=== PATIENT | male | born 1960 | race Caucasian/White ===

== ENCOUNTER 2017-12-01 12:22 | Emergency (ER) | payer MEDICARE, OTHER ==
[~2017-12-01 12:22] MED LIST: CICL8KIT2 EX; CYCL1PAK PO; METO100T9 PO; METO25 PO; OMEP20TA PO; OMEP20TA39 PO; VENL-39 PO; VENL75 PO
[2017-12-01 12:28] VITALS: BP 171/92; PULSE 120; RESP 18; TEMP 98.4; O2SAT 94
[2017-12-01] MEDS ORDERED: OMEP20TA93 PO (12:41)
[2017-12-01] MEDS ORDERED: DIAZ10 PO (12:41)
[2017-12-01] MEDS ORDERED: WATER PILL (12:41)
[2017-12-01] MEDS ORDERED: INHALER (12:41)
[2017-12-01] MEDS ORDERED: METO25TA3 PO (12:41)
[2017-12-01] MEDS ORDERED: VENL75XR PO (12:41)
[2017-12-01] MEDS ORDERED: CYCL10TA PO (12:41)
[2017-12-01] MEDS ORDERED: MICO2CRE34 TOPICAL (12:59)
--- NOTE | 2017-12-01 13:06 | PD ---
HPI Chief Complaint: Skin Problem Time Seen by Provider: 12:38 Travel History International Travel<30 days: No Contact w/Intl Traveler<30days: No Traveled to known affect area: No History of Present Illness HPI 57-year-old male with PMH of GERD, HTN presents the ED for evaluation of 3-day history of pruritic rash in the intertriginous area under the right breast and the inner aspect of the right upper arm. Patient states that the rash began gradually. He denies fever, chills, nausea, vomiting, prodrome of burning sensation, cold or flu symptoms, history of MRSA, injury to the area. He denies any new grooming products, perfumes, deodorants, laundry detergents. Denies sick contacts. He is been treating at home with Benadryl with no improvement of symptoms. PFSH Past Medical History Asthma: Yes Anxiety: Yes Depression: Yes Heart Rhythm Problems: Yes (hx of increase heart rate) Cardiovascular Problems: Yes GERD: Yes Hypertension: Yes Respiratory: Yes Tetanus Vaccination: Unknown Influenza Vaccination: Yes Social History Alcohol Use: Yes (sociallly mix drinks, beer) Tobacco Use: No Substance Use: No Allergies-Medications (Allergen,Severity, Reaction): Coded Allergies: No Known Allergies (Unverified Allergy, Unknown, 12/01/17) Reported Meds & Prescriptions Reported Meds & Active Scripts Active Keflex (Cephalexin) 500 Mg Cap 500 Mg PO Q6H 7 Days Bactrim DS (Sulfamethoxazole-Trimethoprim) 800-160 Mg Tab 1 Tab PO BID Bactroban Topical (Mupirocin) 22 Gm Cream 1 Applic TOPICAL BID 10 Days Reported Valium (Diazepam) 10 Mg Tab 10 Mg PO DIRECTED [Inhaler] [Water Pill] Metoprolol Tartrate 25 Mg Tab Unknown Dose PO DIRECTED Flexeril (Cyclobenzaprine HCl) 10 Mg Tab 10 Mg PO BID Omeprazole 20 Mg Tab 20 Mg PO DAILY Effexor XR 24 HR (Venlafaxine HCl) 75 Mg Cap 75 Mg PO DAILY Review of Systems Except as stated in HPI: all other systems reviewed are Neg Physical Exam Narrative GENERAL: Well-nourished, well-developed obese white male no acute distress. SKIN: Focused skin assessment warm/dry. There is a scattered, maculopapular, pustular, erythematous, nonblanching rash in the intertriginous area under the right breast and the inner aspect of the right arm. HEAD: Normocephalic. EYES: No scleral icterus. No injection or drainage. NECK: Supple, trachea midline. No JVD or lymphadenopathy. CARDIOVASCULAR: Regular rate and rhythm without murmurs, gallops, or rubs. RESPIRATORY: Breath sounds clear and equal bilaterally. No accessory muscle use. GASTROINTESTINAL: Abdomen soft, non-tender, nondistended. MUSCULOSKELETAL: No cyanosis, or edema. BACK: Nontender without obvious deformity. No CVA tenderness. Data Data Last Documented VS Vital Signs Date Time Temp Pulse Resp B/P (MAP) Pulse Ox O2 Delivery O2 Flow Rate FiO2 12/01/17 15:23 93 18 137/76 (96) 96 12/01/17 12:28 98.4 Orders Orders Electrocardiogram (12/01/17 ) Complete Blood Count With Diff (12/01/17 14:06) Basic Metabolic Panel (Bmp) (12/01/17 14:06) Blood Culture (12/01/17 14:06) ^ Insert Iv (12/01/17 14:06) Metoprolol Succinate Er (Toprol Xl) (12/01/17 14:15) Ed Discharge Order (12/01/17 15:10) Labs Laboratory Tests Test 12/01/17 14:30 White Blood Count 5.4 TH/MM3 Red Blood Count 4.62 MIL/MM3 Hemoglobin 15.1 GM/DL Hematocrit 44.7 % Mean Corpuscular Volume 96.8 FL Mean Corpuscular Hemoglobin 32.7 PG Mean Corpuscular Hemoglobin Concent 33.8 % Red Cell Distribution Width 12.6 % Platelet Count 151 TH/MM3 Mean Platelet Volume 8.3 FL Neutrophils (%) (Auto) 48.3 % Lymphocytes (%) (Auto) 42.5 % Monocytes (%) (Auto) 7.5 % Eosinophils (%) (Auto) 0.9 % Basophils (%) (Auto) 0.8 % Neutrophils # (Auto) 2.7 TH/MM3 Lymphocytes # (Auto) 2.3 TH/MM3 Monocytes # (Auto) 0.4 TH/MM3 Eosinophils # (Auto) 0.0 TH/MM3 Basophils # (Auto) 0.0 TH/MM3 CBC Comment DIFF FINAL Differential Comment Blood Urea Nitrogen 18 MG/DL Creatinine 1.60 MG/DL Random Glucose 78 MG/DL Calcium Level 8.9 MG/DL Sodium Level 143 MEQ/L Potassium Level 4.3 MEQ/L Chloride Level 107 MEQ/L Carbon Dioxide Level 29.4 MEQ/L Anion Gap 7 MEQ/L Estimat Glomerular Filtration Rate 45 ML/MIN MDM Medical Decision Making Medical Screen Exam Complete: Yes Emergency Medical Condition: Yes Differential Diagnosis Intertrigo versus cellulitis versus contact dermatitis versus shingles versus other Narrative Course 57-year-old male with PMH of GERD, HTN presents the ED for evaluation of 3-day history of pruritic rash in the intertriginous area under the right breast and the inner aspect of the right upper arm. He denies fever, chills, nausea, vomiting, prodrome of burning sensation, cold or flu symptoms, history of MRSA, injury to the area. He denies any new grooming products, perfumes, deodorants, laundry detergents. Denies sick contacts. Patient is tachycardic, nontoxic appearing on arrival. On exam there is a blanching, macular papular, pustular, erythematous, scattered rash in the intertriginous area under the right breast on the right arm. Exam otherwise unremarkable. EKG rate 101, sinus tachycardia. IL interval 156, QRS 92, QTC 393 ms. Normal axis. No acute ST changes. Reviewed by Dr. Pitt. Patient takes metoprolol, has not taken today's dose. This administered in the ED. CBC: No leukocytosis or anemia. CMP: Unremarkable. Heart rate 93 on recheck. I discussed case with Dr. Pitt. Patient's prescribed Bactrim, Keflex and Bactroban ointment. He is instructed to keep the area clean, dry and covered, take antibiotics as prescribed, return for worsening symptoms. He can otherwise follow-up with his primary care provider. Patient indicated understanding of instructions and is agreeable to care plan. The patient is stable and discharged home. Diagnosis Primary Impression: Rash and nonspecific skin eruption Referrals: Primary Care Physician Additional Instructions: Keep the area of rash clean, dry and covered. Begin antibiotics today and take them as prescribed until every pill is gone. Apply antibiotic ointment twice a day. Wash hands before and after applying ointment. Benadryl as described on the label as needed for continued itching. Avoid hot showers as this can worsen itching. Follow up with the butcher or primary care provider. Return to the ED for worsening symptoms or any urgent or emergent medical condition. Med/Other Pt SpecificInfo: Prescription(s) given Scripts Cephalexin (Keflex) 500 Mg Cap 500 MG PO Q6H for Infection for 7 Days, #28 CAP 0 Refills Prov: Elen Pitt MD 12/01/17 Sulfamethoxazole-Trimethoprim (Bactrim DS) 800-160 Mg Tab 1 TAB PO BID for Infection, #14 TAB 0 Refills Prov: Elen Pitt MD 12/01/17 Mupirocin Topical (Bactroban Topical) 22 Gm Cream 1 APPLIC TOPICAL BID for Mgmt Bacterial Infection for 10 Days, #1 TUBE 0 Refills Prov: Elen Pitt MD 12/01/17 Disposition: 01 DISCHARGE HOME Condition: Stable Iris Cox Dec 01, 2017 13:06
[2017-12-01] MEDS ORDERED: MUPI2%T TOPICAL (13:10)
[2017-12-01 13:16] VITALS: PULSE 110; O2SAT 94
[2017-12-01] MEDS ORDERED: METOPROLOL SUCCINATE 25 MG EXTENDED RELEASE TAB PO ONE (14:15)
[2017-12-01 14:51] LABS: AUTOMATED NEUTROPHIL # 2.7 TH/MM3 (1.8-7.7); BASOPHIL % 0.8 % (0.0-2.0); EOSINOPHIL % 0.9 % (0.0-4.0); HEMATOCRIT 44.7 % (39.0-51.0); HEMOGLOBIN 15.1 GM/DL (13.0-17.0); LYMPH % 42.5 % (9.0-44.0); LYMPHOCYTE # 2.3 TH/MM3 (1.0-4.8); MEAN CELL VOLUME 96.8 FL (80.0-100.0); MEAN CORPUSCULAR HEMOGLOBIN 32.7 PG (27.0-34.0); MEAN CORPUSCULAR HGB CONC 33.8 % (32.0-36.0); MEAN PLATELET VOLUME 8.3 FL (7.0-11.0); MONO % 7.5 % (0.0-8.0); MONOCYTE # 0.4 TH/MM3 (0-0.9); NEUT % 48.3 % (16.0-70.0); PLATELET COUNT 151 TH/MM3 (150-450); RED BLOOD COUNT 4.62 MIL/MM3 (4.50-5.90); RED CELL DISTRIBUTION WIDTH 12.6 % (11.6-17.2); WHITE BLOOD COUNT 5.4 TH/MM3 (4.0-11.0)
[2017-12-01 15:02] LABS: CALCIUM 8.9 MG/DL (8.5-10.1)
[2017-12-01 15:03] LABS: BICARBONATE 29.4 MEQ/L (21.0-32.0)
[2017-12-01 15:06] LABS: CREATININE 1.6 MG/DL (0.60-1.30)
[2017-12-01] MEDS ORDERED: BACT800T5 PO (15:07)
[2017-12-01] MEDS ORDERED: CEPH-460 PO (15:07)
[2017-12-01 15:23] VITALS: BP 137/76
--- NOTE | 2017-12-02 23:29 | EKG ---
Date Performed: 12/01/2017 Time Performed: 14:23:22 PTAGE: 57 years EKG: SINUS TACHYCARDIA ABNORMAL RHYTHM ECG NO PREVIOUS TRACING DOCTOR: Keon Huitron Interpretating Date/Time 12/02/2017 23:27:55
--- NOTE | 2017-12-05 11:17 | PD ---
Physical Exam Narrative I, Dr. Pitt, have reviewed the advance practice practitioner's documentation and am in agreement, met with the patient face to face, made the diagnosis, and the medical decision making was done by me. *My assessment and Findings: Please see mid-level provider note for full history , physical, and disposition. Patient presents to the emergency department complaining of a pruritic rash present on the right breast and right upper arm. States he has been using Benadryl at home without relief of symptoms. Patient is tachycardic on triage vitals slightly hypertensive. He advises that he missed his dose of metoprolol today. Will order EKG, CBC, chemistry, blood cultures. Will give the daily dose of metoprolol in the ER. Data Data Last Documented VS Vital Signs Date Time Temp Pulse Resp B/P (MAP) Pulse Ox O2 Delivery O2 Flow Rate FiO2 12/01/17 15:23 93 18 137/76 (96) 96 12/01/17 12:28 98.4 Orders Orders Electrocardiogram (12/01/17 ) Complete Blood Count With Diff (12/01/17 14:06) Basic Metabolic Panel (Bmp) (12/01/17 14:06) Blood Culture (12/01/17 14:06) ^ Insert Iv (12/01/17 14:06) Metoprolol Succinate Er (Toprol Xl) (12/01/17 14:15) Ed Discharge Order (12/01/17 15:10) Labs Laboratory Tests Test 12/01/17 14:30 White Blood Count 5.4 TH/MM3 Red Blood Count 4.62 MIL/MM3 Hemoglobin 15.1 GM/DL Hematocrit 44.7 % Mean Corpuscular Volume 96.8 FL Mean Corpuscular Hemoglobin 32.7 PG Mean Corpuscular Hemoglobin Concent 33.8 % Red Cell Distribution Width 12.6 % Platelet Count 151 TH/MM3 Mean Platelet Volume 8.3 FL Neutrophils (%) (Auto) 48.3 % Lymphocytes (%) (Auto) 42.5 % Monocytes (%) (Auto) 7.5 % Eosinophils (%) (Auto) 0.9 % Basophils (%) (Auto) 0.8 % Neutrophils # (Auto) 2.7 TH/MM3 Lymphocytes # (Auto) 2.3 TH/MM3 Monocytes # (Auto) 0.4 TH/MM3 Eosinophils # (Auto) 0.0 TH/MM3 Basophils # (Auto) 0.0 TH/MM3 CBC Comment DIFF FINAL Differential Comment Blood Urea Nitrogen 18 MG/DL Creatinine 1.60 MG/DL Random Glucose 78 MG/DL Calcium Level 8.9 MG/DL Sodium Level 143 MEQ/L Potassium Level 4.3 MEQ/L Chloride Level 107 MEQ/L Carbon Dioxide Level 29.4 MEQ/L Anion Gap 7 MEQ/L Estimat Glomerular Filtration Rate 45 ML/MIN MDM Supervised Visit with RUSS: Yes Diagnosis Primary Impression: Rash and nonspecific skin eruption Referrals: Primary Care Physician call for appointment Patient Instructions: General Instructions, Acute Rash (ED) Departure Forms: Tests/Procedures Additional Instruction: Keep the area of rash clean, dry and covered. Begin antibiotics today and take them as prescribed until every pill is gone. Apply antibiotic ointment twice a day. Wash hands before and after applying ointment. Benadryl as described on the label as needed for continued itching. Avoid hot showers as this can worsen itching. Follow up with the diamond die maker or primary care provider. Return to the ED for worsening symptoms or any urgent or emergent medical condition. Scripts Cephalexin (Keflex) 500 Mg Cap 500 MG PO Q6H for Infection for 7 Days, #28 CAP 0 Refills Prov: Elen Pitt MD 12/01/17 Sulfamethoxazole-Trimethoprim (Bactrim DS) 800-160 Mg Tab 1 TAB PO BID for Infection, #14 TAB 0 Refills Prov: Elen Pitt MD 12/01/17 Mupirocin Topical (Bactroban Topical) 22 Gm Cream 1 APPLIC TOPICAL BID for Mgmt Bacterial Infection for 10 Days, #1 TUBE 0 Refills Prov: Elen Pitt MD 12/01/17 Disposition: 01 DISCHARGE HOME Condition: Stable Elen Pitt MD Dec 05, 2017 11:17
== END 2017-12-01 15:25 | disposition home or self-care (01) ==
LOC: PHEFT 12:22
DX: R21 Rash and other nonspecific skin eruption (principal); R00.0 Tachycardia, unspecified; I10 Essential (primary) hypertension; J45.909 Unspecified asthma, uncomplicated; K21.9 Gastro-esophageal reflux disease without esophagitis; F32.9 Major depressive disorder, single episode, unspecified
CPT/HCPCS: 80048; 85025; 87040; 93005

== ENCOUNTER 2018-01-14 19:06 | Observation (INO) ==
--- NOTE | 2018-01-14 20:17 | XR ---
EXAM DATE: 01/14/2018 8:15 PM EDT AGE/SEX: 57 years / Male INDICATIONS: Patient complains of chest pain and shortness of breath. CLINICAL DATA: This is the patient's initial encounter. Patient reports that signs and symptoms have been present for 3 days and indicates a pain score of 4/10. MEDICAL/SURGICAL HISTORY: Chronic obstructive pulmonary disease. None. COMPARISON: POI, XR CHEST PA AND LAT, 06/01/2015. . FINDINGS: A single AP view of the chest demonstrates the lungs to be symmetrically aerated without evidence of mass, infiltrate or effusion. The cardiomediastinal contours are unremarkable. Osseous structures a re intact. CONCLUSION: No evidence of acute cardiopulmonary disease. Electronically signed by: Niles Bruno MD 01/14/2018 8:16 PM EDT
[2018-01-14 20:37] LABS: Baso % (Auto) 0.4 % (0.0-2.0); Eos % (Auto) 0.7 % (0.0-4.0); Hematocrit 41.1 % (39.0-51.0); Lymph # (Auto) 1.8 th/mm3 (1.0-4.8); Lymph % (Auto) 27.9 % (9.0-44.0); Mean Platelet Volume 8.8 fL (7.0-11.0); Mono # (Auto) 0.5 th/mm3 (0.0-0.9); Mono % (Auto) 7.6 % (0.0-8.0); Neut # (Auto) 4.2 th/mm3 (1.8-7.7); Neut % (Auto) 63.4 % (16.0-70.0); Platelet Count 141 th/mm3 (150-450); Red Blood Count 4.37 mil/mm3 (4.50-5.90); Red Cell Distribution Width 13.1 % (11.6-17.2); White Blood Count 6.6 th/mm3 (4.0-11.0)
--- NOTE | 2018-01-14 20:38 | ED ---
HPI General Chief complaint: Chest Pain Stated complaint: chest pain/evac Time Seen by Provider: 01/14/18 19:47 Source: patient Mode of arrival: EMS Limitations: no limitations History of Present Illness HPI narrative: The patient is a 57 year old male who presents to the [facility] emergency department with a history of reportedly not feeling well since this morning. He reports having a sensation of subjective fever, bitemporal headache, generalized fatigue, and then at 1 PM he began to have central chest pain radiating to the left arm. He reports that the pain has been coming and going although more often present than not. He reports the pain is a pressure sensation. The patient reports having associated shortness of breath. He reports that he has tingling sensations in the left arm mainly in the fourth and fifth digit. He denies having any one-sided weakness associated with this. He denies having any difficulty with word finding ability, facial droop, vertigo, or vision changes. The patient reports having nausea, however he reports that this is chronic related to his anxiety. He denies having any vomiting. He denies having any diarrhea. He reports that he has been moving his bowels regularly. He denies having any urinary symptoms. On review of systems otherwise, the patient denies having any worsening cough or congestion ( history of COPD with chronic cough), neck pain,abdominal pain, vomiting, diarrhea, urinary symptoms, or neurologic symptoms. The patient denies any prior history of myocardial infarction, however he does report having "a hole in his heart", hypertension, history of hyperlipidemia, COPD. He denies any prior history of DVT or PE. The patient reports that he did take an adult aspirin earlier today. Related Data Allergies Allergy/AdvReac Type Severity Reaction Status Date / Time No Known Allergies Allergy Verified 01/14/18 19:47 Review of Systems ROS: all other systems reviewed are negative (Except for that which is mentioned in the HPI) [facility] Medical History Medical History Anxiety (Acute) GERD (gastroesophageal reflux disease) (Acute) HTN (hypertension) (Acute) Heart murmur (Acute) Sarcocystosis (Acute) Tachycardia (Acute) Surgical History Surgical History History of appendectomy (Acute) History of elbow surgery (Acute) History of hip surgery (Acute) History of knee surgery (Acute) Social History Social History Substance History: No History of Abuse Second Hand Smoke Exposure: No Smoking Status: Never smoker Tobacco Type: Cigarettes How Often Do You Have a Drink Containing Alcohol: 2 to 3 times a week Recent Travel in [facility] within the Last 8 Weeks: No Recent Out of Country Travel within the Last 8 Weeks: No Immunization History Tetanus Immunization: <5 Years Hx Influenza Vaccine This Season: Yes Exam Const General: cooperative, no acute distress and well developed Nutritional Appearance: obese Orientation: alert, awake and oriented x3 HENMT Head: normocephalic and atraumatic Nose: no nasal discharge and no epistaxis Mouth: moist mucous membranes Throat: posterior oropharynx normal and uvula midline Eyes Sclera: normal sclerae Pupils: PERRL Neck Neck: no meningeal signs, trachea midline and no JVD Resp Effort & Inspection: no use of accessory muscles Auscultation: clear to auscultation bilaterally, no rales, no rhonchi and no wheezes Cardio Rate: tachycardic (Sinus tachycardia with a heart rate in the low 100s, no pulse deficits to the extremities on simultaneous auscultation and palpation of his radial artery.) Rhythm: regular rhythm Heart Sounds: no gallops, no murmurs and no rubs GI Inspection: non-distended Palpation: soft, no hepatosplenomegaly, no guarding, not rigid and nontender Auscultation: normal bowel sounds Back/Spine/Pelvis Back: CVA tenderness (The patient reports having CVA tenderness on the left.) Skin General: dry skin (warm) Neuro General: alert, awake and oriented x3 Cranial Nerves: other (No facial asymmetry.) Speech: speech normal Motor: strength 5/5 throughout and no movement abnormalities noted Sensory Exam: no sensory deficits noted Extrem General: normal to inspection (No calf tenderness on palpation. 2+ pulses in all 4 extremities.), no clubbing, no cyanosis and edema (Trace pedal edema noted in bilateral lower extremities. He reports that this is chronic. He denies this being any worse than usual.) Laterality: bilaterally Psych Mood: congruent mood Affect: normal affect Judgment: judgment good Course Initial Documented Vital Signs Temperature 98.8 F 01/14/18 19:47 Pulse Rate 111 H 01/14/18 19:47 Respiratory Rate 28 H 01/14/18 19:47 Blood Pressure 126/65 01/14/18 19:47 Pulse Oximetry 97 01/14/18 19:47 Last Documented Vital Signs Temperature 98.8 F 01/14/18 19:47 Pulse Rate 93 H 01/14/18 20:30 Respiratory Rate 24 01/14/18 20:30 Blood Pressure 123/77 01/14/18 20:31 Pulse Oximetry 98 01/14/18 20:30 Medical Decision Making MDM Narrative Medical decision making narrative: During the course of the patient's emergency department visit, the patient's history, examination, and differential diagnosis were reviewed with the patient. The patient was placed on a cardiac rn with oximetry and frequent blood pressure monitoring. The patient had IV access obtained and blood work sent for analysis. Diagnostic evaluation was started regarding this patient's chest pain associated with shortness of breath , radiation to the left arm, and nausea. The patient was initially provided nitroglycerin 1 inch the chest wall. The patient was given sublingual nitroglycerin prior to arrival by ambulance services. The patient reports that he did take an adult aspirin earlier today. Laboratory studies are remarkable for a white count of 6.6, platelets 141, normal differential, hemoglobin 14, PT PTT within normal limits, chemistry is remarkable for a troponin I of less than 0.02, glucose 107, GFR 49, creatinine 1.49,, calcium 8.4, alcohol level less than 3, chest x-ray shows no evidence of acute cardiopulmonary disease. Given the patient's symptoms, the patient will be admitted to the chest pain center for a rule out serial cardiac enzyme protocol followed by consideration of stress testing. The patient's results were discussed with the patient, including the plan of care. I explained that further testing and/ or monitoring is indicated based on the patient's history, examination, and/ or laboratory findings. Therefore, I recommended admission for additional evaluation. The patient expressed understanding and was agreeable with this plan. The patient was admitted to the hospital in stable condition and sent to a bed under the care of the [facility]. Differential Diagnosis Differential Diagnosis: Acute coronary syndrome, versus acid reflux, versus pulmonary embolism, versus pneumonia, versus pneumothorax, versus anxiety Medical Records Medical records reviewed: Yes I reviewed the patient's medical records. Lab Data Lab results reviewed: Yes I reviewed the patient's lab results. Result diagrams: 01/14/18 20:11 01/14/18 20:11 Lab Results 01/14/18 01/14/18 01/14/18 Range/Units 20:11 20:11 20:11 WBC 6.6 (4.0-11.0) th/mm3 RBC 4.37 L (4.50-5.90) mil/mm3 Hgb 14.0 (13.0-17.0) gm/dL Hct 41.1 (39.0-51.0) % MCV 94.0 (80.0-100.0) fL MCH 32.0 (27.0-34.0) pg MCHC 34.0 (32.0-36.0) % RDW 13.1 (11.6-17.2) % Plt Count 141 L (150-450) th/mm3 MPV 8.8 (7.0-11.0) fL Neut % (Auto) 63.4 (16.0-70.0) % Lymph % (Auto) 27.9 (9.0-44.0) % [place] % (Auto) 7.6 (0.0-8.0) % Eos % (Auto) 0.7 (0.0-4.0) % Baso % (Auto) 0.4 (0.0-2.0) % Neut # (Auto) 4.2 (1.8-7.7) th/mm3 Lymph # (Auto) 1.8 (1.0-4.8) th/mm3 [place] # (Auto) 0.5 (0.0-0.9) th/mm3 Eos # (Auto) 0.0 (0.0-0.4) th/mm3 Baso # (Auto) 0.0 (0.0-0.2) th/mm3 WBC Differential . Differential Comment Auto diff final PT 10.1 (9.8-11.6) sec INR 1.0 Ratio APTT 25.8 (24.3-30.1) sec Sodium (136-145) meq/L Potassium (3.5-5.1) meq/L Chloride (98-107) meq/L Carbon Dioxide (21.0-32.0) meq/L Anion Gap (5-15) meq/L BUN (7-18) mg/dL Creatinine (0.60-1.30) mg/dL Estimated GFR (>89) mL/min Random Glucose (74-106) mg/dL Calcium (8.5-10.1) mg/dL Magnesium (1.5-2.5) mg/dL Total Bilirubin (0.2-1.0) mg/dL AST (15-37) U/L ALT (12-78) U/L Alkaline Phosphatase (45-117) U/L Total Creatine Kinase (39-308) U/L CK-MB (CK-2) (0.5-3.6) ng/mL Troponin I Less than 0.02 L (0.02-0.05) ng/mL B-Natriuretic Peptide (0-100) pg/mL Total Protein (6.4-8.2) g/dL Albumin (3.4-5.0) g/dL Lipase 106 (73-393) U/L Serum Alcohol Less than 3 (0-5) mg/dL 01/14/18 01/14/18 Range/Units 20:11 20:11 WBC (4.0-11.0) th/mm3 RBC (4.50-5.90) mil/mm3 Hgb (13.0-17.0) gm/dL Hct (39.0-51.0) % MCV (80.0-100.0) fL MCH (27.0-34.0) pg MCHC (32.0-36.0) % RDW (11.6-17.2) % Plt Count (150-450) th/mm3 MPV (7.0-11.0) fL Neut % (Auto) (16.0-70.0) % Lymph % (Auto) (9.0-44.0) % [place] % (Auto) (0.0-8.0) % Eos % (Auto) (0.0-4.0) % Baso % (Auto) (0.0-2.0) % Neut # (Auto) (1.8-7.7) th/mm3 Lymph # (Auto) (1.0-4.8) th/mm3 [place] # (Auto) (0.0-0.9) th/mm3 Eos # (Auto) (0.0-0.4) th/mm3 Baso # (Auto) (0.0-0.2) th/mm3 WBC Differential Differential Comment PT (9.8-11.6) sec INR Ratio APTT (24.3-30.1) sec Sodium 142 (136-145) meq/L Potassium 3.6 (3.5-5.1) meq/L Chloride 107 (98-107) meq/L Carbon Dioxide 21.3 (21.0-32.0) meq/L Anion Gap 14 (5-15) meq/L BUN 14 (7-18) mg/dL Creatinine 1.49 H (0.60-1.30) mg/dL Estimated GFR 49 L (>89) mL/min Random Glucose 107 H (74-106) mg/dL Calcium 8.4 L (8.5-10.1) mg/dL Magnesium 1.8 (1.5-2.5) mg/dL Total Bilirubin 0.3 (0.2-1.0) mg/dL AST 19 (15-37) U/L ALT 36 (12-78) U/L Alkaline Phosphatase 64 (45-117) U/L Total Creatine Kinase 133 (39-308) U/L CK-MB (CK-2) 1.1 (0.5-3.6) ng/mL Troponin I (0.02-0.05) ng/mL B-Natriuretic Peptide 24 (0-100) pg/mL Total Protein 7.0 (6.4-8.2) g/dL Albumin 3.5 (3.4-5.0) g/dL Lipase (73-393) U/L Serum Alcohol (0-5) mg/dL Imaging Data Radiologist's impression: Chest X-Ray 01/14/18 19:47 CONCLUSION: No evidence of acute cardiopulmonary disease. ECG Data Attestation: I personally reviewed and interpreted this ECG as follows: Interpretation: The patient had a EKG done on arrival. The patient's EKG reveals a sinus tachycardia rate of 100, QRS duration 86 ms, QTC [address] segment elevation. Discharge Plan Discharge Disposition Patient Disposition: 30 Still Patient Physicians Team ED Provider: Eirca Stanley Discharge Instructions Patient Printed Instructions: Chest Pain (ED) Discharge Interventions Interventions: Vital Signs Last Done: 01/14/18 20:30 Status ED Status: With Doctor
[2018-01-14 20:49] LABS: Activated Partial Thrombo Time 25.8 sec (24.3-30.1); Prothrombin Time 10.1 sec (9.8-11.6)
[2018-01-14] MEDS ORDERED: Sodium Chlor 0.9% Inj 500 ML IV.SIG ONE (20:49)
[2018-01-14 20:52] LABS: Albumin 3.5 g/dL (3.4-5.0); Anion Gap 14 meq/L (5-15); Aspartate Aminotransferase 19 U/L (15-37); Blood Urea Nitrogen 14 mg/dL (7-18); Calcium 8.4 mg/dL (8.5-10.1); Carbon Dioxide 21.3 meq/L (21.0-32.0); Chloride 107 meq/L (98-107); Glomerular Filtration Rate 49 mL/min (>89); Glucose,Random 107 mg/dL (74-106); Magnesium 1.8 mg/dL (1.5-2.5); Potassium 3.6 meq/L (3.5-5.1); Sodium 142 meq/L (136-145)
[2018-01-14 20:53] LABS: Alanine Aminotransferase 36 U/L (12-78)
[2018-01-14 20:54] LABS: Lipase 106 U/L (73-393)
[2018-01-14 20:55] LABS: Alkaline Phosphatase 64 U/L (45-117); Creatine Kinase 133 U/L (39-308)
[2018-01-14 21:13] LABS: Creatine Kinase MB 1.1 ng/mL (0.5-3.6)
[2018-01-14] MEDS ORDERED: Morphine Inj 4 MG/ML Vial IV.PUSH ONE (21:13)
--- NOTE | 2018-01-15 01:46 | CT ---
EXAM DATE: 01/15/2018 1:29 AM EDT AGE/SEX: 57 years / Male INDICATIONS: Chest pain with elevated D-Dimer. CLINICAL DATA: This is the patient's initial encounter. Patient reports that signs and symptoms have been present for 1 day and indicates a pain score of 6/10. MEDICAL/SURGICAL HISTORY: Cardiovascular disease. Hypertension. Gastroesophageal reflux disease. Appendectomy. RADIATION DOSE: 23.48 CTDI (mGy) COMPARISON: C, CHEST 1V SINGLE AP, 01/14/2018. . TECHNIQUE: Volumetric scanning was performed using a multi-row detector CT scanner during bolus infu franklin of 80 ml Omnipaque 350 (iohexol) nonionic water-soluble contrast as a single exam dose. The marisa a was post processed with a variety of visualization algorithms including full volume maximum intensi ty projection and sliding thin slab reformation. Using automated exposure control and adjustment of the mA and/or kV according to patient size, radiation dose was kept as low as reasonably achievable t o obtain optimal diagnostic quality images. DICOM format image data is available electronically for review and comparison. FINDINGS: Calcified granuloma right upper lobe and calcified right hilar lymph nodes are identified. There is n o evidence of pneumonia. There is subsegmental atelectasis in the left lower lobe. There is no eviden ce of pulmonary embolism. CONCLUSION: 1. Calcified granuloma right upper lobe, and calcified right hilar adenopathy. 2. No evidence for pulmonary embolism or pneumonia. 3. Linear subsegmental atelectasis left lower lobe. Electronically signed by: Yasmani Eaton MD 01/15/2018 1:44 AM EDT
[2018-01-15] MEDS ORDERED: ALPRAZolam 0.25 MG Tablet PO PRN (01:48)
[2018-01-15 03:12] LABS: Creatine Kinase 159 U/L (39-308)
[2018-01-15] MEDS ORDERED: Acetaminophen 325 MG Tablet PO ONE (04:08)
[2018-01-15 07:15] LABS: Creatine Kinase 401 U/L (39-308)
[2018-01-15 07:52] LABS: CKMB Percent 0.8 % (0.0-4.0); Creatine Kinase MB 3.1 ng/mL (0.5-3.6)
[2018-01-15] MEDS ORDERED: Ketorolac Inj 30 MG/ML (IVP) Vial IV.PUSH ONE (08:35)
--- NOTE | 2018-01-15 08:35 | P.HPCA ---
History of Present Illness Primary Care Physician: GERDA Espinosa Chief Complaint: Chest pain History of Present Illness: 57 year old male with history of hypertension, GERD, anxiety, and COPD presents emergency room for further evaluation of chest pain. Onset "long time, I had for years." Yesterday episode more severe with accompanying fatigue and dyspnea. Location left anterior chest. Characterized as a "deep inside her." Duration constant. Made worse during inspiration and coughing. No associated symptoms of nausea, vomiting, or diaphoresis. States "I felt sick all day," unable to elaborate. No precipitating or relieving factors. No recent illness , fever, injury or trauma. States he has been his general state of health. Family history noncontributory for early onset cardiovascular disease. Reports having a hole in his heart and tachycardiac, follows with Dr. Marguerite Kaiser. Current pain level moderate. Unable to give name of medications he takes daily, reports x2 "heart pills." Past cardiac testing No recent cardiac testing. 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 Reports a cardiac test involving a scanner 6 years ago and diagnosed with a "slight blockage." - Diagnosis (1) Chest pain, atypical (2) H/O: hypertension Review of Systems All other systems reviewed negative except as stated in HPI [facility] - History History Provided By: Patient - Medical History Medical History: Medical History (Last Reviewed 01/15/18 @ 12:02 by GERDA Albert) Anxiety GERD (gastroesophageal reflux disease) HTN (hypertension) Heart murmur Sarcocystosis Tachycardia - Surgical History Surgical History: Surgical History (Last Reviewed 01/15/18 @ 12:02 by GERDA Albert) History of appendectomy History of elbow surgery History of hip surgery History of knee surgery - Tobacco History Second Hand Smoke Exposure: No Tobacco Use In Past 30 Days: No Smoking Status: Never smoker Tobacco Type: Cigarettes - Alcohol History How Often Do You Have a Drink Containing Alcohol: 2 to 3 times a week - Substance Use History Substance History: No History of Abuse - Travel History Recent Travel in the [facility] Within the Last 8 Weeks: No Recent Travel Out of the Country Within the Last 8 Weeks: No - Immunization History Tetanus Immunization: <5 Years Hx Influenza Vaccine This Season: Yes Medications and Allergies Active Medications: Active Medications Alprazolam (Xanax) 0.25 mg PO Q8H PRN PRN Reason: ANXIETY Famotidine (Pepcid) 20 mg PO BID [facility] Last Admin: 01/15/18 08:28 Dose: 20 mg Sodium Chloride (Ns Flush) 2 ml IV.FLUSH UNSCH PRN PRN Reason: FLUSH AFTER USING IV ACCESS Sodium Chloride (Ns Flush) 2 ml IV.FLUSH BID [facility] Last Admin: 01/15/18 08:28 Dose: 2 ml Sodium Chloride (Ns Flush) 2 ml IV.FLUSH PRN PRN PRN Reason: FLUSH AFTER USING IV ACCESS Allergies Allergy/AdvReac Type Severity Reaction Status Date / Time No Known Allergies Allergy Verified 01/14/18 19:47 Home Medications Medication Instructions Recorded Confirmed Type No Known Home Medications 01/15/18 01/15/18 History Exam Vital signs: Vital Signs 01/14/18 19:47 01/14/18 20:20 01/14/18 20:30 Temperature 98.8 F Pulse Rate 111 H 93 H Respiratory Rate 28 H 24 Blood Pressure 126/65 118/67 Blood Pressure [Left Arm] 118/67 Blood Pressure [Right Arm] Pulse Oximetry 97 97 98 01/14/18 20:31 01/14/18 22:26 01/15/18 02:55 Temperature Pulse Rate 80 80 Respiratory Rate 22 20 Blood Pressure 120/57 L 128/64 Blood Pressure [Left Arm] Blood Pressure [Right Arm] 123/77 Pulse Oximetry 97 94 L 01/15/18 02:56 01/15/18 07:00 Temperature Pulse Rate Respiratory Rate 17 Blood Pressure Blood Pressure [Left Arm] Blood Pressure [Right Arm] Pulse Oximetry 94 L Intake & Output 01/14/18 01/15/18 01/15/18 18:59 06:59 18:59 Intake Total 500 / 500 Balance 500 / 500 Weight 134.717 kg Intake: IV 500 / 500 Narrative: GENERAL: Alert WN, WD, NAD, anxious, moderately obese male who appears older than stated age HEAD: NC, AT NECK: Supple, no masses, trachea midline CV: RRR, without murmur, rub, gallop, no JVD. Chest wall pain easily reproduced with light palpation. RESP: Clear lungs throughout bilateral, no crackles, wheeze, rhonchi, symmetrical chest rise, nonlabored, able to speak in full sentences ABD: Soft, NT, ND, no masses, positive bowel tones EXT: Pulses +x4, no dependent edema MS: Normal tone x4 extremities, nontender, no obvious deformities, full range of motion NEURO: CN II through CN XII grossly intact, motor strength 5/5 PSYCH: A+O x3, flat affect, appropriate speech, anxious mood, appropriate insight and judgment SKIN: Normal turgor, normal texture, no lesions, no rashes, multiple tattoos Results 01/14/18 20:11 01/14/18 20:11 Cardiac Enzymes 01/14/18 01/14/18 01/14/18 Range/Units 20:11 20:11 20:11 AST 19 (15-37) U/L CK-MB (CK-2) 1.1 (0.5-3.6) ng/mL Troponin I Less than 0.02 L (0.02-0.05) ng/mL B-Natriuretic Peptide 24 (0-100) pg/mL 01/15/18 01/15/18 Range/Units 02:40 05:50 AST (15-37) U/L CK-MB (CK-2) 3.1 (0.5-3.6) ng/mL Troponin I Less than 0.02 L Less than 0.02 L (0.02-0.05) ng/mL B-Natriuretic Peptide (0-100) pg/mL Coagulation 01/14/18 01/14/18 Range/Units 20:11 20:11 PT 10.1 (9.8-11.6) sec APTT 25.8 (24.3-30.1) sec B-Natriuretic Peptide 24 (0-100) pg/mL CBC 01/14/18 Range/Units 20:11 WBC 6.6 (4.0-11.0) th/mm3 RBC 4.37 L (4.50-5.90) mil/mm3 Hgb 14.0 (13.0-17.0) gm/dL Hct 41.1 (39.0-51.0) % Plt Count 141 L (150-450) th/mm3 Neut # (Auto) 4.2 (1.8-7.7) th/mm3 Lymph # (Auto) 1.8 (1.0-4.8) th/mm3 Dubois # (Auto) 0.5 (0.0-0.9) th/mm3 Eos # (Auto) 0.0 (0.0-0.4) th/mm3 Baso # (Auto) 0.0 (0.0-0.2) th/mm3 Comprehensive Metabolic Panel 01/14/18 Range/Units 20:11 Sodium 142 (136-145) meq/L Potassium 3.6 (3.5-5.1) meq/L Chloride 107 (98-107) meq/L Carbon Dioxide 21.3 (21.0-32.0) meq/L BUN 14 (7-18) mg/dL Creatinine 1.49 H (0.60-1.30) mg/dL Calcium 8.4 L (8.5-10.1) mg/dL AST 19 (15-37) U/L ALT 36 (12-78) U/L Alkaline Phosphatase 64 (45-117) U/L Total Protein 7.0 (6.4-8.2) g/dL Albumin 3.5 (3.4-5.0) g/dL Intake and Output 01/14/18 01/15/18 01/15/18 22:59 06:59 14:59 Intake Total 500 / 500 Balance 500 / 500 Intake: IV 500 / 500 Other: Weight 134.717 kg EKG interpretations - EKG EKG results cardiology: WNL, sinus rhythm, normal axis, normal QRS Caprini VTE Risk Assessment Caprini VTE Risk Assessment: No/Low Risk (score <= 1) Caprini Risk Assessment Model: Point Value = 1 Point Value = 2 Point Value = 3 Point Value = 5 Age 41-60 Minor surgery BMI > 25 kg/m2 Swollen legs Varicose veins or History of unexplained or recurrent spontaneous Oral contraceptives or hormone replacement Sepsis (< 1 month) Serious lung disease, including pneumonia (< 1 month) Abnormal pulmonary function Acute myocardial infarction Congestive heart failure (< 1 month) History of inflammatory bowel disease Medical patient at bed rest Age 61-74 Arthroscopic surgery Major open surgery (> 45 min) Laparoscopic surgery (> 45 min) Malignancy Confined to bed (> 72 hours) Immobilizing plaster cast Central venous access Age >= 75 History of VTE Family history of VTE Factor V Leiden Prothrombin [id number] Lupus anticoagulant Anticardiolipin antibodies Elevated serum homocysteine Heparin-induced thrombocytopenia Other congenital or acquired thrombophilia Stroke (< 1 month) Elective arthroplasty Hip, pelvis, or leg fracture Acute spinal cord injury (< 1 month) Prophylaxis Regimen: Total Risk Factor Score Risk Level Prophylaxis Regimen 0-1 Low Early ambulation 2 Moderate Order ONE of the following: *Sequential Compression Device (SCD) *Heparin 5000 units SQ BID 3-4 Higher Order ONE of the following medications: *Heparin 5000 units SQ TID *Enoxaparin/Lovenox 40 mg SQ daily (WT < 150 kg, CrCl > 30 mL/min) *Enoxaparin/Lovenox 30 mg SQ daily (WT < 150 kg, CrCl > 10-29 mL/min) *Enoxaparin/Lovenox 30 mg SQ BID (WT < 150 kg, CrCl > 30 mL/min) AND/OR *Sequential Compression Device (SCD) 5 or more Highest Order ONE of the following medications: *Heparin 5000 units SQ TID (Preferred with Epidurals) *Enoxaparin/Lovenox 40 mg SQ daily (WT < 150 kg, CrCl > 30 mL/min) *Enoxaparin/Lovenox 30 mg SQ daily (WT < 150 kg, CrCl > 10-29 mL/min) *Enoxaparin/Lovenox 30 mg SQ BID (WT < 150 kg, CrCl > 30 mL/min) AND *Sequential Compression Device (SCD) Assessment and Plan - Assessment (1) Chest pain, atypical Code(s): R07.89 - Other chest pain Status: Acute Plan: Admitted chest pain center. She has run out 3 sets of EKGs and cardiac enzymes. Monitor on telemetry overnight. Seen evaluated by Dr. Leonidas Tan. Discomfort easily reproduced with light palpation suggesting musculoskeletal, also has pleuritic component. PE ruled out with CTA. Toradol 30 mg IV 1 dose now. Due to risk factors proceed with Lexiscan this morning. Will notify patient's auto engine mechanic, Dr. Marguerite Kaiser of admission to chest pain center. If cardiac testing unremarkable, plans are discharge home with follow-up with primary care provider. (2) H/O: hypertension Code(s): Z86.79 - Personal history of other diseases of the circulatory system Status: Acute Plan: Continue to monitor. Continue home medication as appropriate, once updated in home medication list.
--- NOTE | 2018-01-15 08:36 | ECG ---
Date Performed: 01/15/2018 Time Performed: 02:50:45 PTAGE: 57 years EKG: Sinus rhythm NORMAL ECG PREVIOUS TRACING : 01/14/2018 19.34 Since previous tracing, no significant change noted DOCTOR: Leonidas Tan Interpretating Date/Time 01/15/2018 08:36:06
--- NOTE | 2018-01-15 08:36 | ECG ---
Date Performed: 01/15/2018 Time Performed: 06:03:26 PTAGE: 57 years EKG: Sinus rhythm NORMAL ECG PREVIOUS TRACING : 01/15/2018 02.50 Since previous tracing, no significant change noted DOCTOR: Leonidas Tan Interpretating Date/Time 01/15/2018 08:35:45
--- NOTE | 2018-01-15 08:38 | ECG ---
Date Performed: 01/14/2018 Time Performed: 19:34:36 PTAGE: 57 years EKG: SINUS TACHYCARDIA ABNORMAL RHYTHM ECG PREVIOUS TRACING : 12/01/2017 14.23 Since previous tracing, no significant change noted DOCTOR: Leonidas Tan Interpretating Date/Time 01/15/2018 08:37:26
[2018-01-15] MEDS ORDERED: Famotidine 20 MG Tablet PO SCH (09:00)
[2018-01-15] MEDS ORDERED: Regadenoson Inj 0.4 MG/5 ML Syringe IV.PUSH ONE (11:49)
[2018-01-15 13:15] VITALS: BP 121/70; PULSE 76; RESP 18; TEMP 97.7; O2SAT 98
--- NOTE | 2018-01-15 13:49 | NM ---
EXAM DATE: 01/15/2018 1:08 PM EDT AGE/SEX: 57 years / Male INDICATIONS:Angina. . Chest pain. CLINICAL DATA: This is the patient's subsequent encounter. Patient reports that signs and symptoms h ave been present for 1 day and indicates a pain score of 3/10. MEDICAL/SURGICAL HISTORY: Gastroesophageal reflux disease. Hypertension. Anxiety, heart murmur , sarcocystosis, and tachycardia. Appendectomy. History of elbow, hip, and knee surgery. COMPARISON: No prior exams available for comparison. DOSE: 11 mCi Tc 99m Myoview at rest 35 mCi [id number] at stress 0.4 mg Lexiscan STRESS SYMPTOMS: Asymptomatic. EJECTION FRACTION: >70 % TECHNIQUE: The patient underwent pharmacologic stress with infusion of prescribed dose. Continuous ECG tracing was monitored during stress. Gated SPECT imaging was performed after stress and conventi onal SPECT imaging was performed at rest. The examination was performed on a SPECT/CT scanner, both attenuation and non-corrected datasets were reviewed. FINDINGS: Distribution: The maximum perfused segment at stress is in the septal wall. Perfusion Study: The pattern of perfusion at stress is within normal limits. Gated Study: There are intact wall motion and wall thickening without hypokinetic or dyskinetic segm ents. The ejection fraction is calculated at >70%. RISK CATEGORY: Low (<1% Annual Motality Rate) CONCLUSION: 1. No reversible defects observed to suggest acute ischemia. Electronically signed by: Jesse Ervin MD 01/15/2018 1:48 PM EDT
--- NOTE | 2018-01-17 08:56 | TR ---
Date Performed: 01/15/2018 Time Performed: 11:45:37 DOCTOR: Leonidas Tan DRUG LIST: CLINICAL HISTORY: CHEST PAIN REASON FOR TEST: CHEST PAIN REASON FOR ENDING: OBSERVATION: CONCLUSION: COMMENTS: Lexiscan stress test was performed under standard four minute protocol. Radionuclide was injected one minute prior to ending the test. No electrocardiographic abormalities were present t o suggest ischemia. Nuclear imaging and interpretation are pending.
== END 2018-01-15 18:36 | disposition home or self-care (01) ==
LOC: NEPFCDU 19:06 → NEDAMB 19:06 → NEDA 19:06 → NEPFCDU 01-15 13:39
PROVIDERS: ADMIT Internal Medicine Interventional Cardiology; ATTEND Internal Medicine Interventional Cardiology
DX: I10 Essential (primary) hypertension; E78.5 Hyperlipidemia, unspecified; F41.9 Anxiety disorder, unspecified; R07.89 Other chest pain; J84.10 Pulmonary fibrosis, unspecified; I20.9 Angina pectoris, unspecified; Z79.899 Other long term (current) drug therapy; J44.9 Chronic obstructive pulmonary disease, unspecified; K21.9 Gastro-esophageal reflux disease without esophagitis